=== PATIENT | female | born 1940 | race Caucasian/White ===

== ENCOUNTER 2019-09-04 01:04 | Emergency (ER) | payer MEDICARE ==
[2019-09-04] MEDS ORDERED: Fentanyl 100 MCG/2 ML VIAL ONE (02:08)
[2019-09-04] MEDS ORDERED: Lidocaine 1% PF 5 ML VIAL ONE (09:13)
[2019-09-04] MEDS ORDERED: PROPOFOL 200 MG/20 ML VIAL ONE (09:13)
[2019-09-04] MEDS ORDERED: Succinylcholine Chloride 20 MG/ML 10 ml SYRINGE FS ONE (09:13)
--- NOTE | 2019-09-06 08:24 | CON ---
DATE OF CONSULTATION: 09/04/2019 REFERRING PHYSICIAN: HENRI Parham MD. REASON FOR CONSULTATION: Dysphagia, food bolus impaction. HISTORY OF PRESENT ILLNESS: Ms. Kady Otero is a very pleasant 78-year-old female who was eating some meat this evening around 6 o'clock. She felt that the meat piece stuck in the esophagus and unable to swallow any water or even saliva. She had been constantly spitting her saliva. She went initially to [facility] and subsequently transferred here. The patient had history of esophageal stricture, status post dilation by Dr. Mustafa in [place] more than 10 years ago. The patient had done well over the years and has had no dysphagia. She usually eats well, not coughing and choking. Last night at 6:00 p.m., she was eating some meat which is chicken and some bread and she got the meat stuck. She is unable to swallow saliva. She also complains of pain when trying to swallow the saliva. She had no coughing. No chest pain. No abdominal pain. No relevant history. ALLERGIES: PENICILLIN. SOCIAL HISTORY: The patient is . She does not smoke or drink alcohol. MEDICAL ILLNESSES: 1. Hypertension. 2. Hyperlipidemia. 3. Hypothyroidism. 4. Past history of esophageal stricture, status post dilation more than 10 years ago. No history of heart disease. No diabetes. No COPD. SURGERIES: Multiple including cholecystectomy, hysterectomy, esophageal dilation, hernia repair x2, cataract surgeries. SYSTEM REVIEW: 10-point system review; totally unremarkable. PHYSICAL EXAMINATION: GENERAL: Revealed a very pleasant female, appears very comfortable. She is awake, alert, and communicative. She is afebrile. VITAL SIGNS: Her pulse is 76, blood pressure is 140/76. HEENT: Conjunctivae are clear. NECK: Supple. No adenitis or thyromegaly noted. CARDIOVASCULAR SYSTEM: First and second heart sounds heard. LUNGS: Clear to auscultation. ABDOMEN: Soft. No organomegaly. No tenderness. No masses. EXTREMITIES: Reveal no edema. CLINICAL IMPRESSION: A 78-year-old female with food impaction in esophagus. PLAN: 1. EGD and removal of meat piece versus pushing it down into the stomach. 2. I met with Mr. Otero and also Mrs. Otero. Both were explained about the procedure in detail. The procedure includes esophagoscopy under sedation and removal of foreign body versus pushing it down. Potential risks like sepsis, bleeding, perforation, and aspiration, explained to the patient. The patient and patient's family fully understood the information and agreed to proceed with EGD. I will plan for EGD as soon as possible. Job ID: [id number]
--- NOTE | 2019-09-06 09:56 | OP ---
DATE OF PROCEDURE: 09/04/2019 OPERATIVE PROCEDURE: Esophagogastroduodenoscopy with removal of esophageal foreign body. DESCRIPTION OF PROCEDURE: The patient was intubated and was given sedation by Anesthesia Department. A bite block was placed. Then, a [employer] video gastroscope under direct vision passed down the upper esophageal sphincter. Just as soon as the esophagus was entered, she had a foreign body impaction. Really did not have enough room to operate using the snare. the meat piece. However, it is just at the upper esophagus sphincter at 80 cm from difficult for me to manipulate and get the snare into the lumen. Because of the above reason, I tried to gently push it down using the scope as a pusher. Circumferential pressure was placed gently on the rim of the meat piece and I was able to push it down very gently into the esophagus. The mucosa at the site of impaction was markedly erythematous, edematous, and friable. Once the meat was just pushed past the stricture, I was able to advance the scope into the stomach without any difficulty. The lumen was completely opened and no more meat piece impaction. The fundus area showed the the area. The gastric body, gastric antrum, duodenum . The stomach was decompressed and scope removed. Because of the very friable edematous mucosa, I have elected not doing dilation. At the end of the procedure, her vital signs were stable and the neck was palpated and no free air or any crepitus. DISCHARGE PLANNING: This is a 78-year-old female with meat impaction seen in the ER. She underwent EGD and disimpaction. The patient is being discharged home. She will come back to me as an outpatient in the next two weeks to do dilation of the stricture. Job ID: [id number]
== END 2019-09-04 02:25 | disposition admitted as inpatient to this hospital (09) ==
LOC: ERS 01:04
DX: K22.2 Esophageal obstruction (principal); I10 Essential (primary) hypertension; E78.00 Pure hypercholesterolemia, unspecified; E03.9 Hypothyroidism, unspecified; K21.9 Gastro-esophageal reflux disease without esophagitis; Z79.899 Other long term (current) drug therapy
CPT/HCPCS: 99284; J2001; J2704; J3010

== ENCOUNTER 2021-12-23 15:25 | Observation (INO) | payer MEDICARE ==
[2021-12-23 18:17] VITALS: BMI 30.9
[2021-12-23] MEDS ORDERED: Ondansetron PF 4 MG/2 ML Vial IVP PRN (20:41)
[2021-12-23] MEDS ORDERED: Nitroglycerin 0.4 MG TAB (25 Tab Bottle) SL PRN (20:41)
[2021-12-23] MEDS ORDERED: Electrolyte Replacement Protocol 1 EACH FS SCH (20:45)
[2021-12-23] MEDS: Acetaminophen 325 MG TAB PO PRN (20:54)
[2021-12-23 21:29] LABS: Anion Gap 13 mmol/L (10-20); BUN (Urea Nitrogen) 7 mg/dL (9.8-20.1); Calc. Creatinine Clearance 98 mL/min (70-130); Calcium 8.9 mg/dL (7.8-10.44); Carbon Dioxide 27 mmol/L (23-31); Chloride 98 mmol/L (98-107); Glucose 94 mg/dL (83-110); Magnesium 1.5 mg/dL (1.6-2.6); Sodium 135 mmol/L (136-145)
[2021-12-23 21:32] LABS: Troponin I 0.013 ng/mL (< 0.028)
[2021-12-23 21:41] LABS: Potassium 2.9 mmol/L (3.5-5.1)
[2021-12-23] MEDS: Potassium Chloride 20 MEQ TAB PO SCH (21:57)
[2021-12-23] MEDS ORDERED: Magnesium 2 GM/50 ML(in water) 2 GM in Premix Bag 1 BAG IVPB SCH (22:00)
[2021-12-23] MEDS ORDERED: Nitroglycerin 2% Ointment 1 INCH/1 GM Packet TOP SCH (23:59)
[2021-12-24 00:42] LABS: Troponin I 0.012 ng/mL (< 0.028)
[2021-12-24] MEDS: Potassium Chloride 20 MEQ TAB PO SCH (01:30)
[2021-12-24] MEDS: Acetaminophen 325 MG TAB PO PRN ×2 (01:30→23:30)
[2021-12-24 05:46] LABS: #Eosinphils 0.1 thou/uL (0.0-0.7); #Lymphocytes 0.9 thou/uL (1.20-3.40); #Monocytes 0.6 thou/uL (0.11-0.59); #Neutrophils 3.3 thou/uL (1.40-6.50); %Eosinophils 2.8 % (0.0-10.0); %Monocytes 12.1 % (0.0-10.0); Hemoglobin 12.1 g/dL (12.0-16.0); Mean Corpuscular HGB CONC 34.4 g/dL (32.0-36.0); Mean Corpuscular Hemoglobin 30.7 pg (27.0-31.0); Mean Corpuscular Volume 89.4 fL (78.0-98.0); Mean Platelet Volume 7.1 fL (7.4-10.4); Platelet Count 228 thou/uL (130-400); RBC Distribution Width 11.7 % (11.5-14.5); Red Blood Cell (RBC) Count 3.94 mill/uL (4.20-5.40); White Blood Cell (WBC) Count 4.9 thou/uL (4.8-10.8)
[2021-12-24 06:07] LABS: Anion Gap 12 mmol/L (10-20); BUN (Urea Nitrogen) 6 mg/dL (9.8-20.1); Calc. Creatinine Clearance 104 mL/min (70-130); Carbon Dioxide 25 mmol/L (23-31); Cardiac Risk 3.3 (Less than 4.5); Chloride 102 mmol/L (98-107); Cholesterol 131 mg/dl (< 200 Desired); Glucose 84 mg/dL (83-110); HDL Cholesterol 40 mg/dL (>60 Neg Risk); LDL Cholesterol, Calculated 80 mg/dL; Magnesium 1.9 mg/dL (1.6-2.6); Sodium 135 mmol/L (136-145); Triglycerides 54 mg/dL (Less than 150)
[2021-12-24] MEDS ORDERED: Magnesium 2 GM/50 ML(in water) 2 GM in Premix Bag 1 BAG IVPB SCH (06:15)
[2021-12-24] MEDS ORDERED: ADENOSINE 60 MG/20 ML VIAL ONE (08:40)
[2021-12-24] MEDS ORDERED: Enoxaparin Sodium 40 MG/0.4 ML SYRINGE SC SCH (09:00)
[2021-12-24] MEDS ORDERED: Morphine 4 MG/ML VIAL SLOW IVP SCH (10:45)
[2021-12-24] MEDS ORDERED: Ketorolac Tromethamine 30 MG/ML VIAL IVP SCH (16:30)
[2021-12-24] MEDS ORDERED: tiZANidine HCl 4 MG TAB PO SCH (16:30)
[2021-12-24] MEDS: Carvedilol 6.25 MG TAB PO SCH (16:43)
[2021-12-24] MEDS ORDERED: Atorvastatin Calcium 10 MG TAB PO SCH (21:00)
[2021-12-24] MEDS ORDERED: LACTINEX 1 TAB PO SCH (22:27)
[2021-12-24] MEDS ORDERED: Acetaminophen 325 MG TAB PO PRN (23:23)
[2021-12-25 05:27] LABS: #Basophils 0.1 thou/uL (0.0-0.2); #Eosinphils 0.2 thou/uL (0.0-0.7); #Monocytes 0.4 thou/uL (0.11-0.59); #Neutrophils 2.5 thou/uL (1.40-6.50); %Basophils 1.2 % (0.0-1.0); %Eosinophils 5.3 % (0.0-10.0); %Lymphocytes 24.4 % (21.0-51.0); %Monocytes 8.7 % (0.0-10.0); %Neutrophils 60.4 % (42.0-75.0); Hemoglobin 11.5 g/dL (12.0-16.0); Mean Corpuscular HGB CONC 33.8 g/dL (32.0-36.0); Mean Corpuscular Hemoglobin 30.1 pg (27.0-31.0); Mean Corpuscular Volume 89.1 fL (78.0-98.0); Mean Platelet Volume 6.5 fL (7.4-10.4); Platelet Count 266 thou/uL (130-400); RBC Distribution Width 11.7 % (11.5-14.5); Red Blood Cell (RBC) Count 3.84 mill/uL (4.20-5.40); White Blood Cell (WBC) Count 4.2 thou/uL (4.8-10.8)
[2021-12-25 05:52] LABS: Anion Gap 14 mmol/L (10-20); BUN (Urea Nitrogen) 10 mg/dL (9.8-20.1); Calc. Creatinine Clearance 91 mL/min (70-130); Calcium 8.7 mg/dL (7.8-10.44); Carbon Dioxide 24 mmol/L (23-31); Chloride 99 mmol/L (98-107); Glucose 80 mg/dL (83-110); Magnesium 1.8 mg/dL (1.6-2.6); Sodium 133 mmol/L (136-145)
[2021-12-25] MEDS ORDERED: Levothyroxine Sodium 100 MCG TAB PO SCH (06:00)
[2021-12-25] MEDS ORDERED: Magnesium 2 GM/50 ML(in water) 2 GM in Premix Bag 1 BAG IVPB SCH (06:15)
[2021-12-25 07:19] VITALS: TEMP 97.9
[2021-12-25] MEDS: Carvedilol 6.25 MG TAB PO SCH (08:47)
[2021-12-25] MEDS: Acetaminophen 325 MG TAB PO PRN (08:47)
[2021-12-25] MEDS ORDERED: Hydrochlorothiazide 25 MG TAB PO SCH (09:00)
[2021-12-25] MEDS ORDERED: Amlodipine 5 MG TAB PO SCH (09:00)
[2021-12-25] MEDS ORDERED: tiZANidine HCl 4 MG TAB PO SCH (09:00)
[2021-12-25 11:01] VITALS: BP 132/75
== END 2021-12-25 11:00 | disposition home or self-care (01) ==
LOC: 2SW 18:09
PROVIDERS: ADMIT Emergency Medicine; ATTEND Emergency Medicine
DX: R07.89 Other chest pain (principal); M50.30 Other cervical disc degeneration, unspecified cervical region; E87.6 Hypokalemia; E83.42 Hypomagnesemia; I10 Essential (primary) hypertension; E78.5 Hyperlipidemia, unspecified; M25.512 Pain in left shoulder; K21.9 Gastro-esophageal reflux disease without esophagitis; G89.29 Other chronic pain; M19.90 Unspecified osteoarthritis, unspecified site; Z87.891 Personal history of nicotine dependence; Z79.890 Hormone replacement therapy; Z79.899 Other long term (current) drug therapy; Z88.0 Allergy status to penicillin
CPT/HCPCS: 72125; 78452; 80048 ×3; 80061; 83735 ×3; 84443; 84484; 85025 ×2; 93017; 94760; A9500; 36415; 96365; 96375; 96376; G0378; J0153; J1885; J2270; J3475